=== PATIENT | female | born 1955 | race Caucasian/White ===

== ENCOUNTER 2017-05-09 17:56 | Emergency (ER) | payer BC ==
[~2017-05-09] VITALS: Ht 175.3 cm; Wt 80.0 kg
[2017-05-09 18:05] VITALS: BP 168/83; PULSE 88; RESP 16; TEMP 98.5; O2SAT 97
[2017-05-09] MEDS ORDERED: STATIN PO (19:46)
[2017-05-09] MEDS ORDERED: MONT10TA2 PO (19:46)
--- NOTE | 2017-05-09 20:13 | RADRPT ---
EXAM DATE/TIME: 05/09/2017 19:43 [place] COMPARISON: No previous studies available for comparison. INDICATIONS : Trauma to foot. MEDICAL HISTORY : None. SURGICAL HISTORY : None. ENCOUNTER: Initial ACUITY: 1 day PAIN SCORE: 5/10 LOCATION: Right foot, 2-5 MTPJ, & 5th phalange. FINDINGS: 3 views of the right foot demonstrate undermineralized bones with fracture of the fifth digit proxima l phalanx and the distal metaphysis. The middle and distal phalanx of the fifth digit have a chronica lly abnormal shape and appearance but demonstrate no definite fracture. No other fracture is seen. Li sfranc joint appears intact. Bones are undermineralized. There is diffuse subcutaneous edema particul yajaira on the dorsal aspect of the foot. CONCLUSION: 1. Minimally displaced acute appearing fracture of the fifth digit proximal phalanx in the distal met aphyseal region. No other definite fracture is seen. 2. Diffuse subcutaneous edema more severe on the dorsal aspect of the foot. El Mark MD on May 09, 2017 at 20:09 Board Certified Radiologist. This report was verified electronically.
[2017-05-09] MEDS ORDERED: CEPH-460 PO (20:32)
--- NOTE | 2017-05-09 20:36 | PD ---
HPI Chief Complaint: Injury Time Seen by Provider: 19:31 Travel History International Travel<30 days: No Contact w/Intl Traveler<30days: No Traveled to known affect area: No History of Present Illness HPI This is a 61-year-old female here with right foot pain after a large cement post fell onto her foot today. She reports pain with weightbearing which is slightly relieved with rest. Symptom severity is moderate. She denies paresthesia or weakness of the extremity. [facility]LY [facility] Past Medical History High Cholesterol: Yes Diminished Hearing: No Medical other: Yes (ALLERGIES) Tetanus Vaccination: < 5 Years Influenza Vaccination: No ?: Not Past Surgical History Hysterectomy: Yes Social History Alcohol Use: Yes (RARE) Tobacco Use: No Substance Use: No Allergies-Medications (Allergen,Severity, Reaction): Coded Allergies: No Known Allergies (Unverified , 05/09/17) Reported Meds & Prescriptions Reported Meds & Active Scripts Active Reported Singulair (Montelukast Sodium) 10 Mg Tab 10 Mg PO HS [Statin] 1 Tab PO DIRECTED Review of Systems Except as stated in HPI: all other systems reviewed are Neg Physical Exam Narrative GENERAL: Alert and well-appearing 61-year-old female SKIN: Warm and dry. HEAD: Normocephalic. EYES: No injection or drainage. NECK: Supple MUSCULOSKELETAL: No cyanosis. Patient has bilateral nonpitting edema to both lower extremity. She reports is chronic. Right foot: Ecchymosis and swelling to the fifth toe. Small 1-2mm abrasion to the dorsal aspect of the toe. No active bleeding. Patient can flex and extend the toe. Normal sensation. 2+ dorsal pedis pulse. Brisk cap refill. Data Data Last Documented VS Vital Signs Date Time Temp Pulse Resp B/P (MAP) Pulse Ox O2 Delivery O2 Flow Rate FiO2 05/09/17 18:05 98.5 88 16 168/83 (111) 97 Orders Orders Foot, Complete ([id number]) (05/09/17 ) Splint Or Brace Apply/Monitor (05/09/17 20:27) MDM Medical Decision Making Medical Screen Exam Complete: Yes Emergency Medical Condition: Yes Differential Diagnosis Toe fracture, metatarsal fracture, contusion, abrasion Narrative Course This is a 61-year-old female here with right fifth proximal phalanx fracture. The extremity is neurovascularly intact. The toe has a small abrasion to the dorsal aspect of the toe therefore she will be put on antibiotics. Postop shoe supplied to patient. She is instructed to follow-up with podiatry this week. She was offered pain medication and declined. Diagnosis Primary Impression: Fracture of fifth toe, right, closed Qualified Codes: S92.501A - Displaced unspecified fracture of right lesser toe (s), initial encounter for closed fracture Referrals: Maynor Lopez DPGertrude [employer] Reporter Additional Instructions: Antibiotics as directed. Cleansed the area daily with soap and water and apply clean dry dressing. Follow-up with corporate specialist. Tylenol or ibuprofen as needed for pain Return if he developed new or worsening symptoms. Scripts Cephalexin (Keflex) 500 Mg Cap 500 MG PO Q6H for Infection for 7 Days, #28 CAP 0 Refills Prov: Claudia Suarez 05/09/17 Disposition: 01 DISCHARGE HOME Condition: Stable Claudia Suarez May 09, 2017 20:36
== END 2017-05-09 20:53 | disposition home or self-care (01) ==
LOC: PHED 17:56 → PHEFT 20:53
DX: S92.511A Displaced fracture of proximal phalanx of right lesser toe(s), initial encounter for closed fracture (principal); E78.00 Pure hypercholesterolemia, unspecified; W20.8XXA Other cause of strike by thrown, projected or falling object, initial encounter; Z79.899 Other long term (current) drug therapy
CPT/HCPCS: 73630; 99283; E0113